=== PATIENT | female | born 1985 | race Asian ===

== ENCOUNTER 2016-04-04 00:45 | Emergency (ER) | payer MEDICAID, OTHER ==
[~2016-04-04] VITALS: Ht 160 cm; Wt 62.5 kg
[2016-04-04 01:05] VITALS: Ht 160 cm; Wt 62.5 kg
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
[2016-04-04] MEDS ORDERED: LIDOCAINE 1% (MDV) 20 ML INJ SC ONE (01:30)
[2016-04-04] MEDS ORDERED: IBUP-1542 PO (01:43)
== END 2016-04-04 02:05 | disposition home or self-care (01) ==
LOC: FTE 00:45
DX: S91.012A Laceration without foreign body, left ankle, initial encounter (principal); Y28.0XXA Contact with sharp glass, undetermined intent, initial encounter; Y92.512 Supermarket, store or market as the place of occurrence of the external cause
CPT/HCPCS: 12002; Z7502

== ENCOUNTER 2016-04-11 08:08 | Emergency (ER) | payer MEDICAID ==
[~2016-04-11] VITALS: Wt 62.5 kg
[~2016-04-11 08:08] MED LIST: IBUP-1542 PO
[2016-04-11] MEDS ORDERED: LIDOCAINE 1% (MDV) 20 ML INJ SC ONE (09:30)
[2016-04-11] MEDS ORDERED: HYDROCODONE/APAP (5/325) TAB PO ONE (09:30)
[2016-04-11] MEDS ORDERED: BACITUD TOP (10:15)
--- NOTE | 2016-04-11 10:25 | ERD ---
ER Documentation Chief Complaint Date/Time DATE: 04/11/16 TIME: 10:17 Chief Complaint SUTURE REMOVAL ON LEFT ANKLE. HPI This is a 30-year-old female presenting to the emergency department for suture removal. Patient states 7 days ago she came to the ER for laceration of the left ankle. Patient states she had 5 sutures placed to left posterior foot near Achilles tendon. Patient has been using crutches and has not been putting full weight onto the foot. Patient denies pain however states she has some tightness to that area. Patient able to move ankle without difficulty. Neurovascular intact. No drainage, warmth or erythema. No fevers or chills. ROS All systems reviewed and are negative except as per history of present illness. Medications Home Meds Active Scripts Bacitracin* (Bacitracin Oint (UD)*) 1 Applic Oint, 1 APPLIC TOP ONCE for 7 Days , #1 PKT APPLY TO Prov:MARVIN WOO NP 04/11/16 Ibuprofen* (Motrin*) 600 Mg Tab, 600 MG PO Q6, #30 TAB Prov:NIHARIKA MOODY PA-C 04/04/16 Allergies Allergies: Coded Allergies: No Known Allergy (Unverified , 04/04/16) PMhx/Soc History of Surgery: No Anesthesia Reaction: No Hx Neurological Disorder: No Hx Respiratory Disorders: No Hx Cardiac Disorders: No Hx Psychiatric Problems: No Hx Miscellaneous Medical Probl: No Hx Alcohol Use: No Hx Substance Use: No Hx Tobacco Use: No Smoking Status: Never smoker Physical Exam Vitals Vital Signs Date Time Temp Pulse Resp B/P Pulse Ox O2 Delivery O2 Flow Rate FiO2 04/11/16 08:11 98.6 109 20 114/66 98 Physical Exam Const: No acute distress, alert Head: Atraumatic Eyes: Normal Conjunctiva Skin: No petechiae or rashes. 3cm linear laceration to left posterior ankle with [address] No drainage, warmth or surrounding erythema. Some ecchymosis surrounding laceration. No loss of sensation. Back: No midline or flank tenderness Neur: Awake and alert Psych: Normal Mood and Affect Results 24 hrs Current Medications Medications (Trade) Dose Ordered Sig/Martinez Route PRN Reason Start Time Stop Time Status Last Admin Dose Admin Lidocaine (Xylocaine 1% (Mdv) 20 ml) 20 ml ONCE ONCE SC 04/11/16 09:30 04/11/16 09:31 DC Acetaminophen/ Hydrocodone Bitart (Deweese (5/325)) 1 tab ONCE ONCE PO 04/11/16 09:30 04/11/16 09:31 DC 04/11/16 09:45 Procedures/MDM ED COURSE: The patient was stable throughout ED course. I kept the patient and/or family informed of laboratory and diagnostic imaging results throughout the ED course. Laceration Repair by me: Anesthesia: 1% lidocaine locally Location: Left posterior ankle Tendon/Joint/Nerves: No injury Foreign body: None detected after copious irrigation and exploration Technique: 1 simple Interrupted Sutures Complexity: No subcutaneous sutures/mucosal repair/ edge excision Post Closure Length: 3 cm 48 hour wound check. Scar minimization instructions given. MDM: This is a 30-year-old female presents to the emergency department for suture removal. Patient had laceration 7 days ago and 5 interrupted sutures were placed to left posterior ankle. At initial assessment, [address] with no drainage, surrounding erythema or warmth. Site appears to be healing well. Suture removal by me. Sutures removed with tweezers and scissors without incident. After all sutures removed, wound appears to be open however edges can be easily approximated. Informed patient that one suture will need to be placed due to deep laceration. Verbal consent obtained from patient. Patient states she is having some pain after sutures removed and Deweese given while in the ED. Laceration repair as noted above. Patient's bleeding was easily controlled in the department and there is no indication of anemia. No evidence of compartment syndrome, neurologic injury, vascular injury , open joint, tendon laceration, or foreign body. Patient to follow up in 48 hours for wound recheck. Patient is appropriate for outpatient management and encouraged to return in 2 days for wound recheck. Bacitracin ointment prescription provided. Return to ED for any high fever, chest pain, difficulty breathing, shortness breath, wheezing, vomiting, diarrhea, abdominal pain or any new or worsening symptoms. Patient verbalizes understanding. All questions answered at discharge. Departure Diagnosis: Primary Impression: Laceration Additional Impression: Encounter for removal of sutures Condition: Stable Patient Instructions: Laceration, Foot Referrals: [facility] YOU HAVE RECEIVED A MEDICAL SCREENING EXAM AND THE RESULTS INDICATE THAT YOU DO NOT HAVE A CONDITION THAT REQUIRES URGENT TREATMENT IN THE EMERGENCY DEPARTMENT. FURTHER EVALUATION AND TREATMENT OF YOUR CONDITION CAN WAIT UNTIL YOU ARE SEEN IN YOUR DOCTORS OFFICE WITHIN THE NEXT 1-2 DAYS. IT IS YOUR RESPONSIBILITY TO MAKE AN APPOINTMENT FOR FOLOW-UP CARE. IF YOU HAVE A PRIMARY DOCTOR --you should call your primary doctor and schedule an appointment IF YOU DO NOT HAVE A PRIMARY DOCTOR YOU CAN CALL OUR PHYSICIAN REFERRAL HOTLINE AT IF YOU CAN NOT AFFORD TO SEE A PHYSICIAN YOU CAN CHOSE FROM THE FOLLOWING [facility] [address] [facility] [address] [facility] [address] [facility] [address] [facility] [address] [facility]. [facility] [address] [facility]. [facility] YOU HAVE RECEIVED A MEDICAL SCREENING EXAM AND THE RESULTS INDICATE THAT YOU DO NOT HAVE A CONDITION THAT REQUIRES URGENT TREATMENT IN THE EMERGENCY DEPARTMENT. FURTHER EVALUATION AND TREATMENT OF YOUR CONDITION CAN WAIT UNTIL YOU ARE SEEN IN YOUR DOCTORS OFFICE WITHIN THE NEXT 1-2 DAYS. IT IS YOUR RESPONSIBILITY TO MAKE AN APPOINTMENT FOR FOLOW-UP CARE. IF YOU HAVE A PRIMARY DOCTOR --you should call your primary doctor and schedule and appointment IF YOU DO NOT HAVE A PRIMARY DOCTOR YOU CAN CALL OUR PHYSICIAN REFERRAL HOTLINE AT . IF YOU CAN NOT AFFORD TO SEE A PHYSICIAN YOU CAN CHOSE FROM THE FOLLOWING [facility]: [facility] [address] [place] [address] [facility] [address] [place] [address] [facility] [address] [place] [address] Additional Instructions: Return to ED in 2 days for wound check. Return sooner for any warmth, redness, drainage or fevers. MARVIN WOO NP Apr 11, 2016 10:25
== END 2016-04-11 10:32 | disposition home or self-care (01) ==
LOC: FTE 08:08
DX: S91.012D Laceration without foreign body, left ankle, subsequent encounter (principal); X58.XXXD Exposure to other specified factors, subsequent encounter; Z48.02 Encounter for removal of sutures
CPT/HCPCS: 12002; Z7502; Z7610

== ENCOUNTER 2016-04-13 07:14 | Emergency (ER) | payer MEDICAID ==
[~2016-04-13] VITALS: Ht 167.6 cm; Wt 65.0 kg
[~2016-04-13 07:14] MED LIST changes: +BACITUD TOP
[2016-04-13 07:28] VITALS: Ht 167.6 cm; Wt 65.0 kg
--- NOTE | 2016-04-13 08:09 | ERD ---
ER Documentation Chief Complaint Date/Time DATE: 04/13/16 TIME: 08:06 Chief Complaint left foot suture removal and follow up HPI 30 yearo ld female comes in with an ankle laceration on the left from a glass about 10 days ago. Suture removal was done 2 days ago, and the wound was still open, so 1 additional suture was placed. She denies weakness, fever, drainage, and pain. TDAP is up to date. ROS All systems reviewed and are negative except as per history of present illness. Medications Home Meds Active Scripts Bacitracin* (Bacitracin Oint (UD)*) 1 Applic Oint, 1 APPLIC TOP ONCE for 7 Days , #1 PKT APPLY TO Prov:MARVIN WOO NP 04/11/16 Ibuprofen* (Motrin*) 600 Mg Tab, 600 MG PO Q6, #30 TAB Prov:NIHARIKA MOODY PA-C 04/04/16 Allergies Allergies: Coded Allergies: No Known Allergy (Unverified , 04/13/16) PMhx/Soc Medical and Surgical Hx: pt denies Medical Hx, pt denies Surgical Hx History of Surgery: No Anesthesia Reaction: No Hx Neurological Disorder: No Hx Respiratory Disorders: No Hx Cardiac Disorders: No Hx Psychiatric Problems: No Hx Miscellaneous Medical Probl: No Hx Alcohol Use: No Hx Substance Use: No Hx Tobacco Use: No Smoking Status: Never smoker Physical Exam Vitals Vital Signs Date Time Temp Pulse Resp B/P Pulse Ox O2 Delivery O2 Flow Rate FiO2 04/13/16 07:28 98.7 79 18 102/63 98 Physical Exam General: Well-developed, well-nourished. The patient appears in no acute distress. HEENT: Head is normocephalic, atraumatic. No scleral icterus. Neck: Supple. Nontender. Lungs: Clear to auscultation. Normal air movement. Heart: Regular rate and rhythm. S1 and S2 are normal. No murmurs, gallops, or rubs. Abdomen: Nondistended. Extremities: 3 cm transverse laceration on left posterior ankle, 1 simple interrupted suture intact, no erythema. No drainage. Silverman intact. Neurologic: Alert and oriented 3. No focal deficits. Normal speech and gait. Skin: Normal turgor. No rash or lesions. Procedures/MDM 30 year old female comes in for a wound check for a left ankle laceration, no dehiscence or evidence of infection. Wound shows no evidence of infection, foreign body, neurologic injury, vascular injury, open joint or tendon laceration. Patient appropriate for outpatient follow up. Departure Diagnosis: Primary Impression: Suture check Condition: Good Patient Instructions: Suture Care Additional Instructions: suture removal in 8 days NIHARIKA MOODY PA-C Apr 13, 2016 08:09
== END 2016-04-13 08:10 | disposition home or self-care (01) ==
LOC: FTE 07:14
DX: Z48.01 Encounter for change or removal of surgical wound dressing (principal)
CPT/HCPCS: 99281

== ENCOUNTER 2016-04-22 07:26 | Emergency (ER) | payer MEDICAID ==
[~2016-04-22] VITALS: Ht 167.6 cm; Wt 65.0 kg
[2016-04-22 07:27] VITALS: Ht 167.6 cm; Wt 65.0 kg
[2016-04-22] MEDS ORDERED: DIPHTH/TET/ACEL PERTUSS (ADULT) 0.5 ML VIAL IM* ONE (08:30)
--- NOTE | 2016-04-22 08:34 | RADRPT ---
PROCEDURE: XR Ankle. CLINICAL INDICATION: Left ankle pain following injury TECHNIQUE: 3 views of the left ankle were performed. COMPARISON: None. FINDINGS: The osseous structures demonstrate normal alignment and mineralization. No acute fracture or disloc ation is seen. There is talocalcaneal and talonavicular arthrosis. The ankle mortise is intact. No periostitis or osteochondral lesion is identified. No significant soft tissue abnormalities seen. IMPRESSION: 1. No acute fracture or radiopaque foreign body identified. 2. 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 Consider MRI for further evaluation, as clinically indicated. RPTAT: HH .Deysi Nunez MD, Date Time Electronically viewed and signed by .Deysi Nunez MD, on 04/22/2016 08:34 .G/
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
== END 2016-04-22 09:48 | disposition home or self-care (01) ==
LOC: FTE 07:26
DX: Z48.02 Encounter for removal of sutures (principal); M19.072 Primary osteoarthritis, left ankle and foot; Z23 Encounter for immunization
CPT/HCPCS: 73610; 90471; 90715; Z7502

== ENCOUNTER 2017-07-26 15:43 | Emergency (ER) | END 2017-07-26 17:49 | disposition home or self-care (01) ==